=== PATIENT | male | born 1970 | race Caucasian/White ===

== ENCOUNTER → 2016-06-30 | Outpatient (CLI) | payer OTHER ==
--- NOTE | 2016-06-30 15:07 | EST ---
DATE OF SERVICE: 06/30/2016 AGE: 45Y SEX: M HT: 5'10" WT: 250 lbs. Protocol Ruben: X Other: Stress Stage: 2 Dur. of Exercise: 7:23 *Heart Rate Blood Pressure *Rest: 85 Rest: 129/76 * *Max. Achieved: 139 Maximum BP: 210/62 85% PMHR: 150 100% PMHR: 177 *METS: 8.3 INDICATIONS: Preoperative, abnormal EKG. MEDICATIONS: [place], anti-inflammatory, morphine. Patient was exercised for a total period of 7 minutes and 23 seconds. The peak heart rate of 139 is achieved. Maximum blood pressure of 210/62 mmHg was noted. Resting EKG shows normal sinus rhythm with normal UT interval and QRS duration and normal ST-T waves. No ST segment depression suggestive of ischemia is noted. Did not complain of any anginal pain during the test. FINAL IMPRESSION: 1. This exercise test is not suggestive of ischemia. 2. Patient's exercise tolerance is normal. 3. The patient did not complain of any chest pain during the test.
== END ==
LOC: RADNMMAIN 11:13
PROVIDERS: ATTEND Family Medicine
DX: R94.31 Abnormal electrocardiogram [ECG] [EKG] (principal)
CPT/HCPCS: 93017

== ENCOUNTER → 2016-11-14 | Outpatient (CLI) | payer OTHER ==
--- NOTE | 2016-11-14 08:23 | CT ---
EXAMINATION TYPE: CT cervical spine wo con DATE OF EXAM: 11/14/2016 COMPARISON: MRI 05/26/2015 HISTORY: S/P Cervical spinal fusion CT DLP: 681.6 mGycm Automated exposure control for dose reduction was used. TECHNIQUE: CT scan of the cervical spine is obtained without contrast, axial images are obtained, sa gittal and coronal reformatted images are also reviewed. FINDINGS: Postsurgical laminectomy is present C3-C6. There is straightening of the cervical spine. Mi ld loss of disc height is present C3-4, C4-5, C5-6, C6-7. C3-4: Endplate spurring is present C3-4 with mild anterior thecal sac compression. Mild uncovertebral joint hypertrophy is narrowing at this level. C4-5: Uncovertebral joint hypertrophy has mild left and minimal right foraminal narrowing. Mild endpl ate spurring is present without stenosis. C5-6: Small central spur is present without spinal canal stenosis. Neural foramen are patent. Some le ft paracentral endplate spurring at C6 is evident. Limited CT sections are obtained the lung apices appear normal. No focal disc herniations are identif ied. Cervical spine is postsurgical compared to the MRI study. IMPRESSION: 1. Chronic endplate changes mild degenerative disc changes and uncovertebral joint hypertrophy appear chronic. 2. There is some mild bilateral foraminal narrowing in the mid cervical spine discussed above.
== END | disposition home or self-care (01) ==
LOC: RADCTMAIN 07:03
PROVIDERS: ATTEND Neurological Surgery
DX: M99.71 Connective tissue and disc stenosis of intervertebral foramina of cervical region (principal); M47.812 Spondylosis without myelopathy or radiculopathy, cervical region
CPT/HCPCS: 72125

== ENCOUNTER → 2017-03-19 | Outpatient (CLI) | payer OTHER ==
--- NOTE | 2017-03-19 11:11 | CT ---
EXAMINATION TYPE: CT cervical spine wo con DATE OF EXAM: 03/19/2017 COMPARISON: CT cervical spine November 14, 2016. HISTORY: Post op cervical fusion progress study. CT DLP: 1047 mGycm. Automated Exposure Control for Dose Reduction was Utilized. TECHNIQUE: CT scan of the cervical spine is obtained without contrast, axial images are obtained, sa gittal and coronal reformatted images are also reviewed. FINDINGS: Cervical spine is visualized in its entirety from C1 through upper thoracic levels, redemon strates reversal of normal cervical curvature centered at C4-C5 disc space level without evidence of acute fracture or dislocation. Prevertebral soft tissue appears within normal limits. The C1-C2 art iculation is within normal limits on the coronal images. There is redemonstration of bilateral laminectomy defects and spinous process resection from C3 throu gh C6 levels. There is redemonstration of posterior interpedicular rods and screws at these levels. N ote is made the left C3 screw appears slightly more lateral in position than satisfactory, on prior s tudy there was some bone material surrounding it, this is not clearly identified on current study sug gesting interval resorption or slight lateral screw position movement. There is multilevel moderate p osterior spurring on sagittal images from C3 to C4 disc space through superior C7 vertebral body leve l effacing anterior thecal sac having similar appearance to prior study. Review of axial images show C2-C3 level to appear within normal limits. Axial images at C3-C4 level show posterior spur disc complex effacing anterior thecal sac with mild b ilateral neural foraminal narrowing felt present. No significant change from prior study is seen. Axial images at C4-C5 level show posterior spurring effacing anterior thecal sac, bilateral neural fo ramina are felt patent. Findings felt stable from prior. Axial images at C5-C6 level show surgical change, spinal canal is preserved, bilateral neural foramin a are felt patent. Axial images at C6-C7 level show minimal posterior spurring, bilateral neural foramina are patent. Po stsurgical change redemonstrated. No significant change from prior study. Axial images at C7-T1 level are felt within normal limits. Thyroid gland is felt within normal limits. Lung apices are clear. IMPRESSION: There is redemonstration of long segment cervical change C3-C6 level, attention to left C 3 interpedicular screw otherwise no significant change from prior study.
== END | disposition home or self-care (01) ==
LOC: RADCTMAIN 08:39
PROVIDERS: ATTEND Neurological Surgery
DX: Z47.89 Encounter for other orthopedic aftercare (principal); Z98.1 Arthrodesis status
CPT/HCPCS: 72125

== ENCOUNTER 2018-12-08 07:33 | Emergency (ER) | payer BC, OTHER ==
[2018-12-08 07:39] VITALS: RESP 18; TEMP 97.9
[2018-12-08] MEDS ORDERED: SODIUM CHLORIDE 0.9% 500 ML 500 ML IV STA (07:55)
--- NOTE | 2018-12-08 08:03 | ED ---
General Adult HPI - General Chief complaint: Abdominal Pain Stated complaint: Gallbladder pain Time Seen by Provider: 12/08/18 07:35 Source: patient, RN notes reviewed Mode of arrival: ambulatory Limitations: no limitations - History of Present Illness Initial comments: This is a 48-year-old male who presents to the emergency department bleeding right upper quadrant abdominal pain. Patient states his been intermittent over the last few months but lately it is been increasing in frequency and duration. Patient states he can last a couple hours to a couple days. Patient went saw his primary medical care doctor and they told him that they thought it was his gallbladder. Patient denies any fever chills. Patient states in the morning sometimes he is a little nauseated but hasn't vomited. Patient denies any diarrhea. Patient denies any previous abdominal surgeries. Patient denies any chest pain difficulty breathing or shortness of breath. Patient denies any back pain. Patient denies any dysuria hematuria urinary frequency. - Related Data Home Medications Medication Instructions Recorded Confirmed Hydrocodone/Acetaminophen [[place] 1 tab PO Q6H PRN 12/08/18 12/08/18 10-325] Naproxen 500 mg PO BID 12/08/18 12/08/18 Allergies Allergy/AdvReac Type Severity Reaction Status Date / Time ceftriaxone [From Rocephin] Allergy Rash/Hives Verified 12/08/18 08:05 Review of Systems ROS Statement: Those systems with pertinent positive or pertinent negative responses have been documented in the HPI. ROS Other: All systems not noted in ROS Statement are negative. Past Medical History Past Medical History: Musculoskeletal Disorder Additional Past Medical History / Comment(s): BACK PAIN History of Any Multi-Drug Resistant Organisms: None Reported Past Surgical History: Orthopedic Surgery Additional Past Surgical History / Comment(s): LEFT KNEE ARTHROSCOPY Past Anesthesia/Blood Transfusion Reactions: No Reported Reaction Past Psychological History: No Psychological Hx Reported Smoking Status: Current every day smoker Past Alcohol Use History: Occasional Past Drug Use History: None Reported General Exam - General Exam Comments Initial Comments: GENERAL: Patient is well-developed and well-nourished. Patient is nontoxic and well- hydrated and is in mild distress. ENT: Neck is soft and supple. No significant lymphadenopathy is noted. Oropharynx is clear. Moist mucous membranes. Neck has full range of motion without eliciting any pain. EYES: The sclera were anicteric and conjunctiva were pink and moist. Extraocular movements were intact and pupils were equal round and reactive to light. Eyelids were unremarkable. PULMONARY: Unlabored respirations. Good breath sounds bilaterally. No audible rales rhonchi or wheezing was noted. CARDIOVASCULAR: There is a regular rate and rhythm without any murmurs gallops or rubs. ABDOMEN: Minimal right upper quadrant abdominal tenderness. No palpable organomegaly was noted. There is no palpable pulsatile mass. SKIN: Skin is clear with no lesions or rashes and otherwise unremarkable. NEUROLOGIC: Patient is alert and oriented x3. Cranial nerves II through XII are grossly intact. Motor and sensory are also intact. Normal speech, volume and content. Symmetrical smile. MUSCULOSKELETAL: Normal extremities with adequate strength and full range of motion. No lower extremity swelling or edema. No calf tenderness. LYMPHATICS: No significant lymphadenopathy is noted PSYCHIATRIC: Normal psychiatric evaluation. Limitations: no limitations Course Vital Signs 12/08/18 12/08/18 07:36 09:32 Temperature 97.9 F Pulse Rate 68 70 Respiratory 18 18 Rate Blood Pressure 127/86 109/80 O2 Sat by Pulse 99 99 Oximetry Medical Decision Making - Medical Decision Making Ultrasound of the gallbladder showed no gallstones or cholecystitis. One taken and reevaluated the patient he was again and very little discomfort. I spoke with the patient a final for possible HIDA scan and endoscopy he was in agreement with that the patient be discharged home. - Lab Data Result diagrams: 12/08/18 08:04 12/08/18 08:04 Lab Results 12/08/18 12/08/18 12/08/18 Range/Units 08:04 08:04 08:04 WBC 12.1 H (3.8-10.6) k/uL RBC 5.65 (4.30-5.90) m/uL Hgb 17.1 (13.0-17.5) gm/dL Hct 50.7 (39.0-53.0) % MCV 89.7 (80.0-100.0) fL MCH 30.3 (25.0-35.0) pg MCHC 33.8 (31.0-37.0) g/dL RDW 12.9 (11.5-15.5) % Plt Count 266 (150-450) k/uL Neutrophils % 66 % Lymphocytes % 17 % Monocytes % 6 % Eosinophils % 8 % Basophils % 2 % Neutrophils # 7.9 H (1.3-7.7) k/uL Lymphocytes # 2.1 (1.0-4.8) k/uL Monocytes # 0.7 (0-1.0) k/uL Eosinophils # 1.0 H (0-0.7) k/uL Basophils # 0.2 (0-0.2) k/uL Sodium 139 (137-145) mmol/L Potassium 4.6 (3.5-5.1) mmol/L Chloride 110 H (98-107) mmol/L Carbon Dioxide 20 L (22-30) mmol/L Anion Gap 9 mmol/L BUN 16 (9-20) mg/dL Creatinine 0.87 (0.66-1.25) mg/dL Est GFR (CKD-EPI)AfAm >90 (>60 ml/min/1.73 sqM) Est GFR (CKD-EPI)NonAf >90 (>60 ml/min/1.73 sqM) Glucose 97 (74-99) mg/dL Calcium 9.6 (8.4-10.2) mg/dL Total Bilirubin 0.7 (0.2-1.3) mg/dL AST 34 (17-59) U/L ALT 50 (21-72) U/L Alkaline Phosphatase 67 (38-126) U/L Total Protein 7.4 (6.3-8.2) g/dL Albumin 4.3 (3.5-5.0) g/dL Amylase 34 (30-110) U/L Lipase 57 (23-300) U/L Urine Color Yellow Urine Appearance Clear (Clear) Urine pH 5.0 (5.0-8.0) Ur Specific [place] 1.025 (1.001-1.035) Urine Protein Negative (Negative) Urine Glucose (UA) Negative (Negative) Urine Ketones Negative (Negative) Urine Blood Negative (Negative) Urine Nitrite Negative (Negative) Urine Bilirubin Negative (Negative) Urine Urobilinogen <2.0 (<2.0) mg/dL Ur Leukocyte Esterase Negative (Negative) Disposition Clinical Impression: Upper abdominal pain Disposition: HOME SELF-CARE Condition: Good Instructions (If sedation given, give patient instructions): Abdominal Pain (ED), Gastritis (ED), Biliary Colic (ED) Is patient prescribed a controlled substance at d/c from ED?: No Referrals: David Alfaro DO [Primary Care Provider] - 1-2 days Time of Disposition: 10:03
[2018-12-08 08:32] LABS: Appearance,Urine Clear (Clear); Bilirubin,Urine Negative (Negative); Blood,Urine Negative (Negative); Color,Urine Yellow; Glucose,Urine (UA) Negative (Negative); Ketones,Urine Negative (Negative); Leukocyte Esterase,Urine Negative (Negative); Nitrite,Urine Negative (Negative); Protein,Urine Negative (Negative); Specific Gravity,Urine 1.025 (1.001-1.035); Urobilinogen,Urine <2.0 mg/dL (<2.0)
[2018-12-08 08:34] LABS: Basophils # (A) 0.2 k/uL (0-0.2); Basophils % (A) 2 %; Eosinophils % (A) 8 %; HCT 50.7 % (39.0-53.0); HGB 17.1 gm/dL (13.0-17.5); Lymphocytes # (A) 2.1 k/uL (1.0-4.8); Lymphocytes % (A) 17 %; MCH 30.3 pg (25.0-35.0); MCHC 33.8 g/dL (31.0-37.0); MCV 89.7 fL (80.0-100.0); Mean Platelet Volume 6.6; Monocytes # (A) 0.7 k/uL (0-1.0); Monocytes % (A) 6 %; Neutrophils # (A) 7.9 k/uL (1.3-7.7); Neutrophils % (A) 66 %; Platelet Count 266 k/uL (150-450); RBC 5.65 m/uL (4.30-5.90); RDW 12.9 % (11.5-15.5); WBC 12.1 k/uL (3.8-10.6)
[2018-12-08 08:43] LABS: ALT 50 U/L (21-72); AST 34 U/L (17-59); African American GFR (CKD) >90 (>60 ml/min/1.73 sqM); Albumin 4.3 g/dL (3.5-5.0); Alkaline Phosphatase 67 U/L (38-126); Amylase 34 U/L (30-110); Anion Gap 9 mmol/L; Blood Urea Nitrogen 16 mg/dL (9-20); Calcium 9.6 mg/dL (8.4-10.2); Carbon Dioxide 20 mmol/L (22-30); Chloride 110 mmol/L (98-107); Glucose 97 mg/dL (74-99); Potassium 4.6 mmol/L (3.5-5.1); Sodium 139 mmol/L (137-145); Total Bilirubin 0.7 mg/dL (0.2-1.3); Total Protein 7.4 g/dL (6.3-8.2)
--- NOTE | 2018-12-08 08:52 | US ---
EXAMINATION TYPE: US gallbladder DATE OF EXAM: 12/08/2018 COMPARISON: NONE CLINICAL HISTORY: Right upper quadrant abdominal pain . Patient states having a dull RUQ ache that wo n't go away. EXAM MEASUREMENTS: Liver Length: 19.1 cm Gallbladder Wall: 0.2 cm CHD: 0.3 cm Right Kidney: 10.8 x 5.3 x 4.9 cm Pancreas: Obscured by bowel gas Liver: Enlarged. There is increased echogenicity of the hepatic parenchyma with diminished visualizat ion of the portal triads most commonly relating to hepatic steatosis and limiting evaluation for unde rlying hepatic masses. Gallbladder: wnl Evidence for sonographic Davila's sign: neg CBD: Obscured by overlying bowel gas CHD: wnl Right Kidney: wnl IMPRESSION: 1. No sonographic evidence of cholelithiasis nor acute cholecystitis. 2. Sonographic findings most commonly related to hepatic steatosis. Correlate with liver function sabino ts.
[2018-12-08 09:32] VITALS: BP 109/80; PULSE 70
== END 2018-12-08 10:25 | disposition home or self-care (01) ==
LOC: EC 07:33
DX: R10.11 Right upper quadrant pain (principal); R11.0 Nausea; F17.200 Nicotine dependence, unspecified, uncomplicated; Z79.1 Long term (current) use of non-steroidal anti-inflammatories (NSAID); Z88.1 Allergy status to other antibiotic agents
CPT/HCPCS: 36415; 76705; 80053; 81003; 82150; 83690; 85025; 96360; 99284

== ENCOUNTER 2020-12-11 10:18 | Emergency (ER) | payer BC ==
[2020-12-11 10:22] VITALS: TEMP 98.2
--- NOTE | 2020-12-11 11:12 | ED ---
General Adult HPI - General Chief complaint: Recheck/Abnormal Lab/Rx Stated complaint: Covid Swab Time Seen by Provider: 12/11/20 10:53 Source: patient, RN notes reviewed Mode of arrival: ambulatory Limitations: no limitations - History of Present Illness Initial comments: 50-year-old male present emergency Department with chief complaint of needing COVID-19 swab. Patient states that his work sent him in for testing because he's had shortness of breath but states this is been ongoing issue for several years he was a heavy smoker in which he recently quit. Patient states that they've had a few people positive at work in the advised him the need to be swab. He denies any chest pain states that he just says shortness of breath and which in the past his been given albuterol. No leg swelling no leg pain. Patient denies any fevers chills cough or cold-like symptoms. Patient states that he's been referred to pulmonology for testing. - Related Data Home Medications Medication Instructions Recorded Confirmed Hydrocodone/Acetaminophen [[place] 1 tab PO Q6H PRN 12/08/18 12/08/18 10-325] Naproxen 500 mg PO BID 12/08/18 12/08/18 Allergies Allergy/AdvReac Type Severity Reaction Status Date / Time ceftriaxone [From Rocephin] Allergy Rash/Hives Verified 12/11/20 10:21 Review of Systems ROS Statement: Those systems with pertinent positive or pertinent negative responses have been documented in the HPI. ROS Other: All systems not noted in ROS Statement are negative. Past Medical History Past Medical History: Musculoskeletal Disorder Additional Past Medical History / Comment(s): BACK PAIN History of Any Multi-Drug Resistant Organisms: None Reported Past Surgical History: Orthopedic Surgery Additional Past Surgical History / Comment(s): LEFT KNEE ARTHROSCOPY Past Anesthesia/Blood Transfusion Reactions: No Reported Reaction Past Psychological History: No Psychological Hx Reported Smoking Status: Former smoker Past Alcohol Use History: Occasional Past Drug Use History: None Reported General Exam Limitations: no limitations General appearance: alert, in no apparent distress Head exam: Present: atraumatic, normocephalic, normal inspection Eye exam: Present: normal appearance, PERRL, EOMI. Absent: scleral icterus, conjunctival injection, periorbital swelling ENT exam: Present: normal exam, mucous membranes moist Neck exam: Present: normal inspection, full ROM. Absent: tenderness, meningismus, lymphadenopathy Respiratory exam: Present: normal lung sounds bilaterally. Absent: respiratory distress, wheezes, rales, rhonchi, stridor Cardiovascular Exam: Present: regular rate, normal rhythm, normal heart sounds. Absent: systolic murmur, diastolic murmur, rubs, gallop, clicks Course Vital Signs 12/11/20 10:18 Temperature 98.2 F Pulse Rate 92 Respiratory 20 Rate Blood Pressure 116/83 O2 Sat by Pulse 98 Oximetry Medical Decision Making - Medical Decision Making CT, x-ray and labs reviewed CT shows evidence of 2.5 cm mass in the right lower lung. Patient case discussed and patient has appointment tomorrow with pulmonology at 1:15 PM. Patient updated on results and plan of care. - Lab Data Result diagrams: 12/11/20 12:07 12/11/20 12:07 Lab Results 12/11/20 12/11/20 12/11/20 Range/Units 10:30 12:07 12:07 WBC 14.3 H (3.8-10.6) k/uL RBC 5.11 (4.30-5.90) m/uL Hgb 15.5 (13.0-17.5) gm/dL Hct 44.3 (39.0-53.0) % MCV 86.8 (80.0-100.0) fL MCH 30.3 (25.0-35.0) pg MCHC 34.9 (31.0-37.0) g/dL RDW 12.0 (11.5-15.5) % Plt Count 313 (150-450) k/uL MPV 6.7 Neutrophils % 73 % Lymphocytes % 12 % Monocytes % 8 % Eosinophils % 5 % Basophils % 0 % Neutrophils # 10.5 H (1.3-7.7) k/uL Lymphocytes # 1.7 (1.0-4.8) k/uL Monocytes # 1.1 H (0-1.0) k/uL Eosinophils # 0.8 H (0-0.7) k/uL Basophils # 0.1 (0-0.2) k/uL Sodium 136 L (137-145) mmol/L Potassium 4.4 (3.5-5.1) mmol/L Chloride 101 (98-107) mmol/L Carbon Dioxide 24 (22-30) mmol/L Anion Gap 11 mmol/L BUN 16 (9-20) mg/dL Creatinine 0.85 (0.66-1.25) mg/dL Est GFR (CKD-EPI)AfAm >90 (>60 ml/min/1.73 sqM) Est GFR (CKD-EPI)NonAf >90 (>60 ml/min/1.73 sqM) Glucose 99 (74-99) mg/dL Calcium 9.4 (8.4-10.2) mg/dL Total Bilirubin 1.4 H (0.2-1.3) mg/dL AST 34 (17-59) U/L ALT 35 (4-49) U/L Alkaline Phosphatase 91 (38-126) U/L Troponin I (0.000-0.034) ng/mL Total Protein 7.5 (6.3-8.2) g/dL Albumin 4.2 (3.5-5.0) g/dL Coronavirus (PCR) Not Detected (Not Detectd) 12/11/20 Range/Units 12:07 WBC (3.8-10.6) k/uL RBC (4.30-5.90) m/uL Hgb (13.0-17.5) gm/dL Hct (39.0-53.0) % MCV (80.0-100.0) fL MCH (25.0-35.0) pg MCHC (31.0-37.0) g/dL RDW (11.5-15.5) % Plt Count (150-450) k/uL MPV Neutrophils % % Lymphocytes % % Monocytes % % Eosinophils % % Basophils % % Neutrophils # (1.3-7.7) k/uL Lymphocytes # (1.0-4.8) k/uL Monocytes # (0-1.0) k/uL Eosinophils # (0-0.7) k/uL Basophils # (0-0.2) k/uL Sodium (137-145) mmol/L Potassium (3.5-5.1) mmol/L Chloride (98-107) mmol/L Carbon Dioxide (22-30) mmol/L Anion Gap mmol/L BUN (9-20) mg/dL Creatinine (0.66-1.25) mg/dL Est GFR (CKD-EPI)AfAm (>60 ml/min/1.73 sqM) Est GFR (CKD-EPI)NonAf (>60 ml/min/1.73 sqM) Glucose (74-99) mg/dL Calcium (8.4-10.2) mg/dL Total Bilirubin (0.2-1.3) mg/dL AST (17-59) U/L ALT (4-49) U/L Alkaline Phosphatase (38-126) U/L Troponin I <0.012 (0.000-0.034) ng/mL Total Protein (6.3-8.2) g/dL Albumin (3.5-5.0) g/dL Coronavirus (PCR) (Not Detectd) Disposition Clinical Impression: COPD (chronic obstructive pulmonary disease), Right lower lobe lung mass Disposition: HOME SELF-CARE Condition: Stable Instructions (If sedation given, give patient instructions): COPD (Chronic Obstructive Pulmonary Disease) (ED) Additional Instructions: Please follow up with pulmonology tomorrow at 1:15 PM.Please return to the Emergency Department if symptoms worsen or any other concerns. Is patient prescribed a controlled substance at d/c from ED?: No Referrals: David Alfaro DO [Primary Care Provider] - 1-2 days Karthik Bright MD [STAFF PHYSICIAN] - 1-2 days Time of Disposition: 13:46
--- NOTE | 2020-12-11 11:46 | XR ---
EXAMINATION TYPE: XR chest 2V DATE OF EXAM: 12/11/2020 COMPARISON: NONE TECHNIQUE: PA and lateral views submitted. HISTORY: Shortness of breath FINDINGS: No pleural effusion or pneumothorax. Postsurgical change overlying the cervical spine. Heart size nor mal. Arthropathy of the shoulders. Degenerative change of the spine. Nodular density at the right hem idiaphragm measuring 2.5 cm. IMPRESSION: 1. Mild hyperinflation. Correlate for asthma or COPD. There is nodularity at the right lung base porsha g the hemidiaphragm. Recommend CT of the chest.
[2020-12-11] MEDS ORDERED: RX INFO: IV CONTRAST WAS GIVEN 1 EACH MISC MISCELLANE PRN (11:47)
[2020-12-11 12:32] LABS: Basophils # (A) 0.1 k/uL (0-0.2); Basophils % (A) 0 %; Eosinophils # (A) 0.8 k/uL (0-0.7); Eosinophils % (A) 5 %; HCT 44.3 % (39.0-53.0); HGB 15.5 gm/dL (13.0-17.5); Lymphocytes # (A) 1.7 k/uL (1.0-4.8); Lymphocytes % (A) 12 %; MCH 30.3 pg (25.0-35.0); MCHC 34.9 g/dL (31.0-37.0); MCV 86.8 fL (80.0-100.0); Mean Platelet Volume 6.7; Monocytes # (A) 1.1 k/uL (0-1.0); Monocytes % (A) 8 %; Neutrophils # (A) 10.5 k/uL (1.3-7.7); Neutrophils % (A) 73 %; Platelet Count 313 k/uL (150-450); RBC 5.11 m/uL (4.30-5.90); WBC 14.3 k/uL (3.8-10.6)
[2020-12-11 12:42] LABS: ALT 35 U/L (4-49); African American GFR (CKD) >90 (>60 ml/min/1.73 sqM); Albumin 4.2 g/dL (3.5-5.0); Anion Gap 11 mmol/L; Blood Urea Nitrogen 16 mg/dL (9-20); Calcium 9.4 mg/dL (8.4-10.2); Carbon Dioxide 24 mmol/L (22-30); Chloride 101 mmol/L (98-107); Glucose 99 mg/dL (74-99); Non-African American GFR(CKD) >90 (>60 ml/min/1.73 sqM); Sodium 136 mmol/L (137-145); Total Bilirubin 1.4 mg/dL (0.2-1.3); Total Protein 7.5 g/dL (6.3-8.2)
[2020-12-11 12:48] LABS: AST 34 U/L (17-59); Alkaline Phosphatase 91 U/L (38-126); Potassium 4.4 mmol/L (3.5-5.1)
--- NOTE | 2020-12-11 12:56 | CT ---
EXAMINATION TYPE: CT chest w con DATE OF EXAM: 12/11/2020 COMPARISON: 12/11/2020 HISTORY: Abnormal chest x-ray and dyspnea CT DLP: 501.9 mGycm Automated exposure control for dose reduction was used. TECHNIQUE: CT scan of the chest is performed with IV Contrast, patient injected with 100 mL of Isovue 300. MIP Images are created on CT scanner and reviewed. 3D reconstructed images are created on an independent workstation and reviewed. FINDINGS: LUNGS: On the right hemidiaphragm there is a mixed attenuation mass measuring 2.5 cm. No pleural effu deanne. No pneumothorax. No interstitial edema no consolidative pneumonia. Paraseptal emphysematous katie nges are seen involving the lung apices. MEDIASTINUM: There is a short axis measurement of 1.2 cm lymph node in the right hilum.. No pericar dial effusion is seen. Heart size normal. OTHER: Low attenuation involving the liver likely in the basis of fatty infiltration or hepatic stea tosis. Hypertrophic changes of the spine. IMPRESSION: 1. There is a 2.5 cm mass right lower lobe along the margin of the right hemidiaphragm. Recommend PET scan to assess for malignancy. Pathologic adenopathy right hilum. Infectious etiology not entirely e xcluded.
[2020-12-11 13:51] VITALS: BP 110/94; PULSE 74; RESP 16
== END 2020-12-11 13:51 | disposition home or self-care (01) ==
LOC: EC 10:18
DX: J44.9 Chronic obstructive pulmonary disease, unspecified (principal); R91.8 Other nonspecific abnormal finding of lung field; Z20.822 Contact with and (suspected) exposure to COVID-19; Z87.891 Personal history of nicotine dependence
CPT/HCPCS: 36415; 93005; 80053; 84484; 85025; 87635; 71046; 71260; 99285; Q9967

== ENCOUNTER → 2020-12-28 | Outpatient (CLI) | payer BC ==
--- NOTE | 2020-12-30 06:49 | PE ---
EXAMINATION TYPE: PET CT fusion skull to thigh DATE OF EXAM: 12/28/2020 COMPARISON: Chest CT December 11, 2020 HISTORY: Solitary pulmonary nodule right lower lobe, abnormal CT. TECHNIQUE: Following the intravenous administration of 13.90 mCi of F-18 FDG, whole body images are performed from the skull base to the midthigh. Images are reviewed on the computer in the coronal, a xial, and sagittal planes. Reconstructed rotating images are created on independent workstation and reviewed on the computer. A localization and attenuation correction CT is performed in conjunction with the PET scan. Blood glucose level equals 118. SCAN: Initial Scan FINDINGS: SKULL BASE AND NECK: No suspicious hypermetabolic uptake. CHEST, MEDIASTINUM, AND HILAR REGION: Centrally right lung base just above the diaphragm there is per sistent 2.5 x 1.8 cm nodule and/or nodular consolidation axial image 117. It is fairly low density an d noted ametabolic. No areas of abnormal hypermetabolic uptake ABDOMEN AND PELVIS: No suspicious hypermetabolic uptake. Mild uptake intraluminal gastric fundus pres umed artifact. Normal excretion. No adrenal masses. OSSEOUS STRUCTURES: No suspicious hypermetabolic uptake. OTHER CT: Mild to moderate mucosal thickening visualized portion of both maxillary sinuses. Exophytic dermal nodules posterior neck presumed skin tags or other benign dermatologic process. Correlate cli nically. Prominent but subcentimeter thoracic lymph nodes. Long segment postsurgical change to the cervical sp ine. IMPRESSION: No suspicious hypermetabolic uptake in the 2.5 cm right basilar nodule or nodular consoli dation. Consider CT and/or PET CT follow-up in 6-12 months time to reassess to document stability or resolution.
== END | disposition home or self-care (01) ==
LOC: RADPETMAIN 14:04
PROVIDERS: ATTEND Internal Medicine Critical Care Medicine
DX: R91.1 Solitary pulmonary nodule (principal)
CPT/HCPCS: 78815; A9552

== ENCOUNTER → 2021-06-19 | Outpatient (CLI) | payer BC ==
--- NOTE | 2021-06-19 08:32 | CT ---
EXAMINATION TYPE: CT chest w con DATE OF EXAM: 06/19/2021 COMPARISON: CT dated 12/11/2020 HISTORY: Abnormal lung field, stomach pains CT DLP: 516.0 mGycm Automated exposure control for dose reduction was used. TECHNIQUE: CT scan of the chest is performed with IV Contrast, patient injected with 100 mL of Isovue 300. FINDINGS: LUNGS: Interval complete resolution of the previously seen masslike consolidation in the right lung b ase with no residual abnormality seen at that location. Newly seen 4 mm faint peribronchial nodule at the central portion of the left upper lobe (image #28, series 4). Unremarkable lungs otherwise. Kibry nt central airways. No pleural effusion. MEDIASTINUM: 12 mm right hilar lymph node, stable, with 11 mm subcarinal lymph node compared to 13 mm previously. Other scattered smaller hilar and mediastinal lymph nodes. No progressive lymphadenopath y in the chest. No gross cardiomegaly. The pulmonary trunk measures 2.8 cm. OTHER: No suspicious upper abdomen lesion. No aggressive bone lesion. IMPRESSION: 1. Interval complete resolution of the previously seen masslike consolidation of the right lung base with no residual abnormality identified at that location. 2. Newly seen 4 mm nodule in the central portion of the left upper lobe as described above, nonspecif ic. Precautionary follow-up CT scan in 3 months is advised.
== END | disposition home or self-care (01) ==
LOC: RADCTMAIN 07:34
PROVIDERS: ATTEND Internal Medicine Critical Care Medicine
DX: R91.8 Other nonspecific abnormal finding of lung field (principal); R91.1 Solitary pulmonary nodule
CPT/HCPCS: 71260; Q9967

== ENCOUNTER → 2021-09-13 | Outpatient (CLI) | payer BC ==
--- NOTE | 2021-09-13 11:11 | NM ---
EXAMINATION TYPE: NM hepatobiliary w EF DATE OF EXAM: 09/13/2021 COMPARISON: NONE HISTORY: Right upper quadrant pain TECHNIQUE: After the intravenous administration of 5 mCi Tc 99m Mebrofenin hepatobiliary scintigraphy is performed. Immediate images post injection. FINDINGS: There is satisfactory initial accumulation of tracer by the liver. The gallbladder is visualized wit hin 4 minutes. The small bowel activity is noted within 8 minutes. At one hour 8 ounces of oral ens ure plus is given to mimic CCK and gallbladder ejection fraction is calculated at 78 %, in the normal range. Therefore there is no scintigraphic evidence of cystic or common bile duct obstruction to adams ggest acute cholecystitis or gallbladder dyskinesia. IMPRESSION: Exam is within normal limits.
== END | disposition home or self-care (01) ==
LOC: RADNMMAIN 06:41
PROVIDERS: ATTEND Family Medicine
DX: R10.11 Right upper quadrant pain (principal)
CPT/HCPCS: 78226; A9537

== ENCOUNTER 2021-09-18 09:06 | Day surgery (SDC) | payer BC ==
--- NOTE | 2021-09-18 07:35 | P.GSHP ---
History of Present Illness H&P Date: 09/18/21 CHIEF COMPLAINT: GERD and colon screen HISTORY OF PRESENT ILLNESS: The patient is a 50-year-old male who presents with gastroesophageal reflux disease and need for colon screen. Upper and lower endoscopy were offered for further evaluation and management. PAST MEDICAL HISTORY: Please see list. PAST SURGICAL HISTORY: Please see list. MEDICATIONS: Please see list. ALLERGIES: Please see list. SOCIAL HISTORY: No illicit drug use FAMILY HISTORY: No reports of Crohn disease or ulcerative colitis. REVIEW OF ORGAN SYSTEMS: CONSTITUTIONAL: No reports of fevers or chills. GI: Denies any blood in stools or constipation. PHYSICAL EXAM: VITAL SIGNS: Stable GENERAL: Well-developed pleasant in no acute distress. HEENT: No scleral icterus. Extraocular movements grossly intact. Moist buccal mucosa. NECK: Supple without lymphadenopathy. CHEST: Unlabored respirations. Equal bilateral excursions. CARDIOVASCULAR: Regular rate and rhythm. Distal 2+ pulses. ABDOMEN: Soft, nondistended. MUSCULOSKELETAL: No clubbing, cyanosis, or edema. ASSESSMENT: 1. Gastroesophageal reflux disease 2. Colon screen. PLAN: 1. Recommend proceeding with an upper and lower endoscopy Past Medical History Past Medical History: GERD/Reflux, Musculoskeletal Disorder, Osteoarthritis (OA) Additional Past Medical History / Comment(s): BACK PAIN History of Any Multi-Drug Resistant Organisms: None Reported Past Surgical History: Orthopedic Surgery Additional Past Surgical History / Comment(s): LEFT KNEE ARTHROSCOPY Past Anesthesia/Blood Transfusion Reactions: No Reported Reaction Past Psychological History: Anxiety Smoking Status: Former smoker Past Alcohol Use History: None Reported Additional Past Alcohol Use History / Comment(s): 2020 QUIT SMOKING, 1 PPD. BEER Medications and Allergies Home Medications Medication Instructions Recorded Confirmed Type Acetaminophen [Tylenol Arthritis] 1 - 2 tab PO Q6H PRN 09/16/21 09/16/21 History Albuterol Inhaler [Ventolin Hfa 1 puff INHALATION DAILY PRN 09/16/21 09/16/21 History Inhaler] Citalopram Hydrobromide 40 mg PO QAM 09/16/21 09/16/21 History [Citalopram HBr] Famotidine [Pepcid] 20 mg PO DAILY 09/16/21 09/16/21 History Meloxicam [Mobic] 15 mg PO DAILY 09/16/21 09/16/21 History Pantoprazole [Protonix] 40 mg PO QAM 09/16/21 09/16/21 History Allergies Allergy/AdvReac Type Severity Reaction Status Date / Time ceftriaxone [From Rocephin] Allergy Rash/Hives Verified 09/16/21 15:05
[~2021-09-18 09:06] MED LIST: LACTATED RINGERS 1,000 ML IV SCH; LIDOCAINE 1% (10MG/ML) FOR IV START INTRADERMA PRN
[2021-09-18 09:48] VITALS: TEMP 96
[2021-09-18] MEDS ORDERED: ONDANSETRON 4 MG/2 ML VIAL ONE (09:56)
[2021-09-18] MEDS ORDERED: ONDANSETRON 4 MG/2 ML VIAL IVP ONE (09:59)
[2021-09-18] MEDS ORDERED: LIDOCAINE 2% INJ 20 MG/ML (2 ML VIAL) ONE (10:20)
[2021-09-18] MEDS ORDERED: PROPOFOL 10 MG/ML 20 ML VIAL IV ONE (10:20)
--- NOTE | 2021-09-18 10:36 | P.PCN ---
Date of Procedure: 09/18/21 Description of Procedure: PREOPERATIVE DIAGNOSIS: Gastroesophageal reflux disease. POSTOPERATIVE DIAGNOSIS: Gastroesophageal reflux disease. Gastritis. OPERATION: Esophagogastroduodenoscopy with biopsies along antrum and duodenum SURGEON: Marcelina Macedo MD ANESTHESIA: MAC. INDICATIONS: The patient is a 50-year-old male who presents with reflux disease. Benefits and risks of the procedure were described. Informed consent was obtained. DESCRIPTION: The patient was brought into the endoscopy suite and laid in the left lateral decubitus position. An Olympus gastroscope was passed along the posterior oropharynx down to the distal esophagus where the squamocolumnar junction was encountered at 43 cm from the incisors. The stomach was entered and no bile reflux was found. Additional findings are listed below. Biopsies with cold forceps were obtained of the antrum. The first through third portion of the duodenum was examined. Retroflexion of the scope confirmed Hill grade 2 lower esophageal valve. The squamocolumnar junction demonstrated LA grade B erosive esophagitis. The stomach was desufflated. The patient tolerated the procedure well. FINDINGS: Squamocolumnar junction 43 cm from the incisors. Diaphragmatic hiatus at 43 cm. Hill grade 2 lower esophageal valve. LA grade A erosive esophagitis. Cold biopsies were taken of the duodenum Chronic gastritis cold biopsies obtained RECOMMENDATIONS: Upper endoscopy as needed.
--- NOTE | 2021-09-18 11:08 | P.PCN ---
Date of Procedure: 09/18/21 Description of Procedure: PREOPERATIVE DIAGNOSIS: Colonoscopy screening POSTOPERATIVE DIAGNOSIS: Colon polyps, sigmoid colon Sigmoid diverticulosis OPERATION: Colonoscopy to the ileocecal valve and appendiceal orifice, cecum Colonoscopy with cold forceps biopsy SURGEON: Marcelina Macedo MD. ANESTHESIA: MAC. INDICATIONS: The patient is an 50-year-old male who presents for colonoscopy screening. Benefits and risks were described and informed consent was obtained. DESCRIPTION OF PROCEDURE: The patient had undergone Sutab prep. The patient had been brought into the operating room and laid in the left lateral decubitus position. After adequate intravenous sedation, the rectum was examined with 2% lidocaine jelly. The prostate was unremarkable. No external hemorrhoids were encountered. The rectal tone was within normal limits. No lesions were palpated in the rectal vault. An Olympus colonoscope was advanced until the cecum, ileocecal valve and appendiceal orifice were clearly viewed. The prep was excellent. Scattered diverticulosis was encountered. Colonic polyps were found and removed. No evidence of focal colitis was found. Retroflexion of the scope demonstrated grade 2 internal hemorrhoids without active bleeding or inflammation. The colon was desufflated. The patient had tolerated the procedure well. Withdrawal time was over 6 minutes. FINDINGS: Aronchick preparation quality scale 1 (1-5) Internal hemorrhoids, grade 1 No external hemorrhoids No arteriovenous malformations. Scattered ulosis Removal of 5 polyps: - Cold forceps biopsy at 20 cm from the anal verge 5 , 3-5 mm polyps, sigmoid colon No focal colitis. RECOMMENDATIONS: Given severity of tubular adenomas, recommend repeat colonoscopy in 3 years, 2024 Plan - Discharge Summary Discharge Rx Participant: No New Discharge Prescriptions: Continue Citalopram Hydrobromide [Citalopram HBr] 40 mg PO QAM Meloxicam [Mobic] 15 mg PO DAILY Acetaminophen [Tylenol Arthritis] 1 - 2 tab PO Q6H PRN PRN Reason: Pain Pantoprazole [Protonix] 40 mg PO QAM Famotidine [Pepcid] 20 mg PO DAILY Albuterol Inhaler [Ventolin Hfa Inhaler] 1 puff INHALATION DAILY PRN PRN Reason: Shortness Of Breath Or Wheezing Discharge Medication List Acetaminophen [Tylenol Arthritis] 1 - 2 tab PO Q6H PRN 09/16/21 [History] Albuterol Inhaler [Ventolin Hfa Inhaler] 1 puff INHALATION DAILY PRN 09/16/21 [History] Citalopram Hydrobromide [Citalopram HBr] 40 mg PO QAM 09/16/21 [History] Famotidine [Pepcid] 20 mg PO DAILY 09/16/21 [History] Meloxicam [Mobic] 15 mg PO DAILY 09/16/21 [History] Pantoprazole [Protonix] 40 mg PO QAM 09/16/21 [History] Follow up Appointment(s)/Referral(s): Marcelina Macedo MD [STAFF PHYSICIAN] - 10/08/21 Patient Instructions/Handouts: Colorectal Polyps (GEN), Diverticulosis Diet (GEN), Diverticulosis (DC), Gastritis (GEN), Diet for Stomach Ulcers and Gastritis (ED) Activity/Diet/Wound Care/Special Instructions: Repeat colonoscopy in 3 years, 2024 Discharge Disposition: HOME SELF-CARE
[2021-09-18 11:59] VITALS: BP 104/39; PULSE 58; RESP 16
== END 2021-09-18 11:50 | disposition home or self-care (01) ==
LOC: ORWHC2ENDO 09:06
PROVIDERS: ATTEND Surgery Plastic and Reconstructive Surgery
DX: Z12.11 Encounter for screening for malignant neoplasm of colon (principal); K63.5 Polyp of colon; K57.30 Diverticulosis of large intestine without perforation or abscess without bleeding; K64.1 Second degree hemorrhoids; K31.A29 Gastric intestinal metaplasia with dysplasia, unspecified; K31.A19 Gastric intestinal metaplasia without dysplasia, unspecified site; K21.9 Gastro-esophageal reflux disease without esophagitis; K22.10 Ulcer of esophagus without bleeding; K29.50 Unspecified chronic gastritis without bleeding; M19.90 Unspecified osteoarthritis, unspecified site; F41.9 Anxiety disorder, unspecified; Z98.890 Other specified postprocedural states; Z87.891 Personal history of nicotine dependence; Z79.1 Long term (current) use of non-steroidal anti-inflammatories (NSAID); Z79.899 Other long term (current) drug therapy; Z88.1 Allergy status to other antibiotic agents
CPT/HCPCS: 88305; 88342; 45380; 43239; J2405; J2704; J2001

== ENCOUNTER 2021-10-11 08:00 | Day surgery (SDC) | payer BC ==
--- NOTE | 2021-10-11 07:28 | P.GSHP ---
History of Present Illness H&P Date: 10/11/21 CHIEF COMPLAINT: Cholecystitis HISTORY OF PRESENT ILLNESS: The patient is a 51-year-old male who presents with history of epigastric including right upper quadrant abdominal pain. He underwent diagnostic studies for the gallbladder. Separately his clinical picture was consistent with cholecystitis. Now he presents for surgical intervention. PAST MEDICAL HISTORY: Please see list PAST SURGICAL HISTORY: Please see list MEDICATIONS: Please see list ALLERGIES: Denies. SOCIAL HISTORY: No illicit drug use or recent tobacco use FAMILY HISTORY: Pertinent for gallbladder disease REVIEW OF ORGAN SYSTEMS: CONSTITUTIONAL: No reports of fevers or chills. HEENT: Denies any troubles with the vision or hearing. ENDOCRINE: No reports of hypothyroidism. No diabetes. RESPIRATORY: No recent pneumonias. CARDIOVASCULAR: Denies chest pain or palpitations GI: No blood in stools or constipation. MUSCULOSKELETAL: Has occasional joint pain including back pain. NEURO: No seizure disorders or headaches. No recent stroke. PSYCH: No depression or suicidal ideation. HEMATOLOGIC: No personal or family history of DVTs or pulmonary emboli. PHYSICAL EXAM: VITAL SIGNS: Afebrile vital signs stable GENERAL: Well-developed pleasant male in no acute distress. HEENT: No scleral icterus. Extraocular movements grossly intact. Moist buccal mucosa. NECK: Supple without lymphadenopathy. CHEST: Unlabored respirations. Equal bilateral excursions. CARDIOVASCULAR: Regular rate regular rhythm rhythm. Distal 2+ pulses. ABDOMEN: Soft, nondistended. Tender along the epigastrium and right upper quadrant. MUSCULOSKELETAL: No clubbing, cyanosis, or edema. NEURO : No focal or lateralizing signs. Cranial nerves II-12 within normal limits. PSYCH: Alert and oriented to person, place and time. SKIN: Well perfused. Good skin turgor. ASSESSMENT: 1. Epigastric and right upper quadrant abdominal pain 2. Chronic cholecystitis PLAN: 1. Will need a robotic cholecystectomy possible open. Benefits and risks were described. 2. Heparin for DVT prophylaxis 5000 units. 3. Antibiotic prophylaxis. Past Medical History Past Medical History: Musculoskeletal Disorder Additional Past Medical History / Comment(s): BACK PAIN, stomach pain,nausea,diarrhea on and off last couple years, recently worse. History of Any Multi-Drug Resistant Organisms: None Reported Past Surgical History: Orthopedic Surgery Additional Past Surgical History / Comment(s): LEFT KNEE ARTHROSCOPY, egd, colonoscopy Past Anesthesia/Blood Transfusion Reactions: No Reported Reaction Smoking Status: Former smoker - Past Family History Father History Unknown: Yes Mother Family Medical History: Thyroid Disorder Additional Family Medical History / Comment(s): gallbladder removed. lung issues Medications and Allergies Home Medications Medication Instructions Recorded Confirmed Type Acetaminophen [Tylenol Arthritis] 1 - 2 tab PO Q6H PRN 09/16/21 10/09/21 History Albuterol Inhaler [Ventolin Hfa 1 puff INHALATION DAILY PRN 09/16/21 10/09/21 History Inhaler] Citalopram Hydrobromide 40 mg PO QAM 09/16/21 10/09/21 History [Citalopram HBr] Famotidine [Pepcid] 20 mg PO DAILY 09/16/21 10/09/21 History Meloxicam [Mobic] 15 mg PO DAILY 09/16/21 10/09/21 History Pantoprazole [Protonix] 40 mg PO QAM 09/16/21 10/09/21 History Allergies Allergy/AdvReac Type Severity Reaction Status Date / Time No Known Allergies Allergy Verified 10/09/21 08:07
[~2021-10-11 08:00] MED LIST changes: +ACETAMINOPHEN TAB 500 MG TAB PO PRN; +DEXAMETHASONE SOD PHOSPHATE 4 MG/ML 1 ML VIAL IV ONE; +GABAPENTIN 300 MG CAP PO PRN; +HEPARIN SODIUM,PORCINE/PF 5,000 UNIT/0.5 ML SYRINGE SQ PRN; +HYDROmorphone 0.5 MG/0.5 ML SYRINGE IVP PRN; -LIDOCAINE 1% (10MG/ML) FOR IV START INTRADERMA PRN; +MELOXICAM 7.5 MG TAB PO PRN; +MIDAZOLAM 2 MG/2 ML VIAL IV PRN; +ONDANSETRON 4 MG/2 ML VIAL IVP ONE; +SCOPOLAMINE 1 MG/72 HR PATCH TRANSDERM ONE; +TAMSULOSIN 0.4 MG CAP.ER.24H PO PRN
[2021-10-11] MEDS ORDERED: LIDOCAINE 1% (10MG/ML) FOR IV START INTRADERMA ONE (09:50)
[2021-10-11 10:00] LABS: Basophils # (A) 0.1 k/uL (0-0.2); Basophils % (A) 1 %; Eosinophils # (A) 0.6 k/uL (0-0.7); Eosinophils % (A) 7 %; HCT 48.3 % (39.0-53.0); HGB 15.9 gm/dL (13.0-17.5); Lymphocytes # (A) 1.8 k/uL (1.0-4.8); Lymphocytes % (A) 22 %; MCH 28.5 pg (25.0-35.0); MCHC 32.9 g/dL (31.0-37.0); MCV 86.7 fL (80.0-100.0); Mean Platelet Volume 6.5; Monocytes # (A) 0.6 k/uL (0-1.0); Monocytes % (A) 8 %; Neutrophils # (A) 4.9 k/uL (1.3-7.7); Neutrophils % (A) 61 %; Platelet Count 313 k/uL (150-450); RBC 5.57 m/uL (4.30-5.90); RDW 12.6 % (11.5-15.5); WBC 8.1 k/uL (3.8-10.6)
[2021-10-11 10:28] LABS: ALT 25 U/L (4-49); AST 26 U/L (17-59); African American GFR (CKD) >90 (>60 ml/min/1.73 sqM); Albumin 4.3 g/dL (3.5-5.0); Alkaline Phosphatase 48 U/L (38-126); Anion Gap 7 mmol/L; Blood Urea Nitrogen 15 mg/dL (9-20); Carbon Dioxide 23 mmol/L (22-30); Chloride 110 mmol/L (98-107); Glucose 81 mg/dL (74-99); Non-African American GFR(CKD) >90 (>60 ml/min/1.73 sqM); Potassium 4.4 mmol/L (3.5-5.1); Sodium 140 mmol/L (137-145); Total Protein 7.3 g/dL (6.3-8.2)
[2021-10-11] MEDS ORDERED: KETOROLAC 30 MG/ML 1 ML VIAL ONE (11:18)
[2021-10-11] MEDS ORDERED: DEXAMETHASONE SOD PHOSPHATE 10 MG/ML 1 ML VIAL ONE (11:18)
[2021-10-11] MEDS ORDERED: SODIUM CHLORIDE 0.9% (PF) 10 ML VIAL ONE (11:18)
[2021-10-11] MEDS ORDERED: PROPOFOL 10 MG/ML 20 ML VIAL IV ONE (11:18)
[2021-10-11] MEDS ORDERED: ROCURONIUM 10 MG/ML (5 ML VIAL) IV ONE ×2 (11:18)
[2021-10-11] MEDS ORDERED: INDOCYANINE GREEN 25 MG VIAL IV ONE (11:18)
[2021-10-11] MEDS ORDERED: HYDROmorphone (PF) 1 MG/ML ONE (11:18)
[2021-10-11] MEDS ORDERED: LIDOCAINE 2% INJ 20 MG/ML (2 ML VIAL) ONE (11:18)
[2021-10-11] MEDS ORDERED: SUCCINYLCHOLINE CHLORIDE 100 MG/5 ML SYR IV ONE (11:18)
[2021-10-11] MEDS ORDERED: fentaNYL (PF) 50 MCG/ML 2 ML AMP ONE (11:18)
[2021-10-11] MEDS ORDERED: NEOSTIGMINE 1 MG/ML 10 ML VIAL ONE (11:18)
[2021-10-11] MEDS ORDERED: MIDAZOLAM 2 MG/2 ML VIAL ONE (11:18)
[2021-10-11] MEDS ORDERED: ROPIVACAINE ONE (11:18)
[2021-10-11] MEDS ORDERED: GLYCOPYRROLATE 0.2 MG/ML 2 ML VIAL ONE (11:18)
[2021-10-11] MEDS ORDERED: BUPIVACAIN-EPI 0.25%-1:200,000 30 ML VIAL SQ ONE (11:47)
--- NOTE | 2021-10-11 12:35 | P.OP ---
Date of Procedure: 10/11/21 Description of Procedure: SURGEON: MARCELINA MACEDO MD PREOPERATIVE DIAGNOSES: 1. Chronic cholecystitis 2. Family history gallbladder disease 3. Gastroesophageal reflux disease 4. Generalized anxiety disorder 5. Depressive disorder 6. Obesity due to excess calories, BMI 32.3 POSTOPERATIVE DIAGNOSES: 1. Chronic cholecystitis 2. Family history gallbladder disease 3. Gastroesophageal reflux disease 4. Generalized anxiety disorder 5. Depressive disorder 6. Obesity due to excess calories, BMI 32.3 7. Fatty liver disease with hepatomegaly OPERATION: Robotic-assisted da Americo Xi laparoscopic cholecystectomy, multiport with FIREFLY ESTIMATED BLOOD LOSS: 5 mL. SPECIMENS REMOVED: Gallbladder. COMPLICATIONS: None. OPERATIVE FINDINGS: 1. Fatty liver disease with mild hepatomegaly INDICATIONS: The patient is a 51-year-old male who presents with symptomatic gallstones. Robotic assisted laparoscopic approach was described. Benefits and risks of the procedure including but not limited to bleeding, infection, injury to the biliary tree was described. Informed consent was obtained. DESCRIPTION OF PROCEDURE: Patient was brought to the operating room, placed in supine position. After general induction, the abdomen had been prepped and draped in standard sterile fashion. The robotic da Americo XI system was primed. After a timeout protocol was performed, the patient had been prepped and draped in standard sterile fashion. The patient was injected with indocyanine green. A 5 mm 0 degrees laparoscopic trocar entry was performed along the left upper quadrant. The abdomen insufflated to 15 mmHg pressure which was tolerated well. Diagnostic laparoscopy demonstrated no injury to bowel viscera or mesentery. The liver surface was remarkable for fatty liver disease and hepatomegaly. Next, two 8 mm robotic ports were placed along the right upper abdomen. The camera 8-mm port was maintained along the epigastrium. Another 8 mm port was placed along the left upper abdominal wall after exchanging the 5 mm port. Please note that the ports were placed at least 10 to 15 cm away from the target anatomy of the gallbladder. The robot was docked along the left lateral abdomen. The patient was repositioned in reverse Trendelenburg position. Using a grasper for arm 3, a grasper for arm 4, including hook cautery for arm 1, the robotic system was docked and primed as described. Instruments were interchanged by the cafe assistant including hook cautery, Bovie cautery and clip appliers. I had sat at the console. Next attention was brought to the infundibulum and cystic structures. The infundibulum and cystic duct were dissected free from surrounding tissues. The cystic duct was isolated. FIREFLY was used to identify the cystic artery and cystic structures. A critical view of safety was obtained. Large PLASTIC clips were used throughout the entire case. Using a clip field pipelines supervisor, 2 clips were placed at the junction of the infundibulum and cystic duct. The cystic duct was divided between clips. Next, the cystic artery was similarly clipped and cauterized. Two clips at the hepatic fossa present after completion. Electro-Bovie cautery was used to remove the gallbladder from the hepatic fossa. Hemostasis was checked and found to be adequate. The robot was undocked. I re-scrubbed into the case. Using a 10 mm Endo Catch bag via the left upper quadrant incision, the specimen was removed from the abdominal cavity. All pneumoperitoneum instruments were evacuated from the abdominal cavity. The incisions were reapproximated using 4-0 Monocryl in an interrupted subcuticular fashion. Fascial defects were less than 8 mm in size. Please note along the trocar sites, local anesthetic was placed as a field block prior to insertion of all instruments. Liquid glue was applied to the skin. At the end of the procedure needle, sponge, and instrument count had been verified correct by the air launch weapons technician. The patient was transferred to postanesthesia care unit in stable condition. Intraoperative films were shared with the patient's family. Plan - Discharge Summary Discharge Rx Participant: No New Discharge Prescriptions: Continue Citalopram Hydrobromide [Citalopram HBr] 40 mg PO QAM Meloxicam [Mobic] 15 mg PO DAILY Acetaminophen [Tylenol Arthritis] 1 - 2 tab PO Q6H PRN PRN Reason: Pain Pantoprazole [Protonix] 40 mg PO QAM Famotidine [Pepcid] 20 mg PO DAILY Albuterol Inhaler [Ventolin Hfa Inhaler] 1 puff INHALATION DAILY PRN PRN Reason: Shortness Of Breath Or Wheezing Discharge Medication List Acetaminophen [Tylenol Arthritis] 1 - 2 tab PO Q6H PRN 09/16/21 [History] Albuterol Inhaler [Ventolin Hfa Inhaler] 1 puff INHALATION DAILY PRN 09/16/21 [History] Citalopram Hydrobromide [Citalopram HBr] 40 mg PO QAM 09/16/21 [History] Famotidine [Pepcid] 20 mg PO DAILY 09/16/21 [History] Meloxicam [Mobic] 15 mg PO DAILY 09/16/21 [History] Pantoprazole [Protonix] 40 mg PO QAM 09/16/21 [History] Follow up Appointment(s)/Referral(s): Marcelina Macedo MD [STAFF PHYSICIAN] - 10/15/21 (Telehealth) Patient Instructions/Handouts: Laparoscopic Cholecystectomy (DC), Low Fat Diet (ED), *[facility] - Managing Your Pain After Surgery Without Opioids Activity/Diet/Wound Care/Special Instructions: Recommend low-fat diet for the next 2 days. No lifting over 10 pounds in 2 weeks until October 25. July shower. No bath tub soaks for two weeks until October 25.. Diet as tolerated. Use Tylenol, simethicone and ibuprofen or Aleve scheduled for the next 24-48 hours for best pain relief. Use ice along incisions for today to prevent swelling. Discharge Disposition: HOME SELF-CARE
[2021-10-11 12:41] VITALS: TEMP 97.1
[2021-10-11] MEDS ORDERED: LACTATED RINGERS 1,000 ML IV ONE (13:04)
[2021-10-11 13:41] VITALS: BP 110/65; PULSE 63; RESP 16
--- NOTE | 2021-10-11 14:12 | P.ANPRN ---
Procedure Note - Anesthesia - Nerve Block Performed Bilateral Erector Spinae Single Time Out Performed: Yes Date of Procedure: 10/11/21 Procedure Start Time: 10:50 Procedure Stop Time: 10:59 Location of Patient: PreOp Indication: Acute Post-Operative Pain, Requested by Surgeon Sedation Type: Sedate with meaningful contact maintained Preparation: Sterile Prep, Sterile Dressing Position: Prone Catheter: None Needle Types: Pajunk Needle Gauge: 20 Ultrasound used to visualize needle placement: Yes Ultrasound used to observe medication spread: Yes Injectate: Other (see comment) (0.25% ropivacaine 30 ml + 4 mg decadron per side)
== END 2021-10-11 14:22 | disposition home or self-care (01) ==
LOC: OR 08:00
PROVIDERS: ATTEND Surgery Plastic and Reconstructive Surgery
DX: K81.1 Chronic cholecystitis (principal); F41.1 Generalized anxiety disorder; F32.A Depression, unspecified; E66.9 Obesity, unspecified; Z68.32 Body mass index [BMI] 32.0-32.9, adult; K21.9 Gastro-esophageal reflux disease without esophagitis; R16.0 Hepatomegaly, not elsewhere classified; Z98.890 Other specified postprocedural states; Z87.891 Personal history of nicotine dependence; Z83.49 Family history of other endocrine, nutritional and metabolic diseases; Z83.79 Family history of other diseases of the digestive system; Z83.6 Family history of other diseases of the respiratory system; Z79.1 Long term (current) use of non-steroidal anti-inflammatories (NSAID); Z79.899 Other long term (current) drug therapy
CPT/HCPCS: 47563; S2900; 64999; 76942; 80053; 85025; 88304

== ENCOUNTER → 2021-12-26 | Outpatient (CLI) | payer BC ==
--- NOTE | 2021-12-26 10:11 | XR ---
EXAMINATION TYPE: XR humerus RT DATE OF EXAM: 12/26/2021 COMPARISON: NONE HISTORY: Pain TECHNIQUE: 2 views submitted. FINDINGS: The osseous structures are intact and there is mild AC joint arthropathy.. IMPRESSION: 1. No acute fracture or dislocation. 2. Mild AC joint arthropathy.
== END | disposition home or self-care (01) ==
LOC: RADXRMAIN 09:02
PROVIDERS: ATTEND Nurse Practitioner Family
DX: S46.201A Unspecified injury of muscle, fascia and tendon of other parts of biceps, right arm, initial encounter (principal)

== ENCOUNTER → 2021-12-27 | Outpatient (CLI) | payer BC ==
--- NOTE | 2021-12-28 05:50 | MR ---
EXAMINATION TYPE: MR humerus RT wo con DATE OF EXAM: 12/27/2021 COMPARISON: None HISTORY: Right arm pain, swelling and decreased range of motion due to lifting injury at work. Multiplanar multi echo imaging of the right humerus without contrast. Humerus has normal signal pattern. No bone edema. No evidence of a fracture. No evidence of a soft ti ssue mass. The biceps tendon is intact. Glenoid madina appear intact. No evidence of any significant s houlder joint effusion. Deltoid muscle appears normal. There is slight increased signal in the anterior biceps muscle on the T2 images. No pathologic fluid collection. IMPRESSION: Mild increased biceps signal could be muscle edema. No evidence of a hematoma. No evidence of humerus fracture.
== END ==
LOC: RADMRIMAIN 14:45
PROVIDERS: ATTEND Family Medicine
DX: S46.201A Unspecified injury of muscle, fascia and tendon of other parts of biceps, right arm, initial encounter (principal)

== ENCOUNTER → 2023-08-19 | Outpatient (CLI) | payer BC ==
[2023-08-19 17:04] LABS: Basophils # (A) 0.1 k/uL (0-0.2); Basophils % (A) 1 %; Eosinophils # (A) 0.9 k/uL (0-0.7); Eosinophils % (A) 10 %; HCT 45.1 % (39.0-53.0); HGB 14.8 gm/dL (13.0-17.5); Lymphocytes # (A) 1.6 k/uL (1.0-4.8); Lymphocytes % (A) 18 %; MCHC 32.7 g/dL (31.0-37.0); MCV 88.5 fL (80.0-100.0); Mean Platelet Volume 6.8; Monocytes # (A) 0.6 k/uL (0-1.0); Monocytes % (A) 6 %; Neutrophils # (A) 5.7 k/uL (1.3-7.7); Neutrophils % (A) 63 %; Platelet Count 215 k/uL (150-450); RDW 12.8 % (11.5-15.5)
[2023-08-19 17:17] LABS: ALT 29 U/L (4-49); AST 26 U/L (17-59); African American GFR (CKD) >90 (>60 ml/min/1.73 sqM); Albumin 4.1 g/dL (3.5-5.0); Albumin/Globulin Ratio 1.5; Alkaline Phosphatase 75 U/L (38-126); Anion Gap 8 mmol/L; Blood Urea Nitrogen 15 mg/dL (9-20); Calcium 9.2 mg/dL (8.4-10.2); Carbon Dioxide 20 mmol/L (22-30); Chloride 112 mmol/L (98-107); Creatine Kinase 193 U/L (55-170); Globulin 2.7 g/dL; Glucose 122 mg/dL (74-99); Non-African American GFR(CKD) >90 (>60 ml/min/1.73 sqM); Sodium 140 mmol/L (137-145); Total Bilirubin 0.6 mg/dL (0.2-1.3); Total Protein 6.8 g/dL (6.3-8.2)
== END | disposition home or self-care (01) ==
LOC: LABWHC1 16:01
PROVIDERS: ATTEND Nurse Practitioner Family
DX: I10 Essential (primary) hypertension (principal); R07.89 Other chest pain
CPT/HCPCS: 36415; 80053; 82550; 82552; 84484; 85025; 93005